=== PATIENT | female | born 2000 | race Two or more races ===

== ENCOUNTER 2023-07-20 12:26 | Inpatient (IN) ==
--- NOTE | 2023-07-20 14:43 | Emergency Department Note ---
Impression & Plan Multifocal pneumonia, CAP (community acquired pneumonia) ED Provider Note NAME: DAMASO EPPERSON AGE: 22 SEX: F : 2000 ARRIVES VIA: Walk-In INFORMANT: Patient, ED PROVIDER(S): Leo Hayward DO CHIEF COMPLAINT: Pneumonia HPI: Patient is a 20-year-old female with no significant past medical history that presents the ER for cough which has been present for close to 1 week. She admits to feeling hot and cold but no recorded fevers. Shots are up-to-date. She has shortness of breath which has been getting worse since yesterday as well as pain with coughing. Denies any belly pain, nausea, vomiting, or diarrhea. No dysuria, urgency, or frequency. No other exacerbating or remitting factors. ADDITIONAL HISTORY OBTAINED: Per HPI Chronic Medical/Social Conditions Affecting Care: Per HPI PAST MEDICAL HISTORY:See Below PAST SURGICAL HISTORY:See Below FAMILY HISTORY:See Below SOCIAL HISTORY:See Below HOME MEDICATIONS:See Below ALLERGIES:See Below VITALS:See Below PHYSICAL EXAMINATION: GENERAL: Sitting up in bed, alert, well appearing, well nourished, no distress, non-toxic, intermittent cough EYE EXAM: normal conjunctiva. PERRL and EOM's grossly intact. OROPHARYNX:mucous membranes are moist NECK: supple, no nuchal rigidity, no adenopathy, non-tender LUNGS: Clear to auscultation. Normal chest wall mechanics HEART: tachycardic, S1 normal and S2 normal ABDOMEN: abdomen soft, non-tender, normo-active bowel sounds, no masses, no rebound or guarding. BACK: Back is symmetrical on inspection and there is no deformity, no midline tenderness, no CVA tenderness. SKIN: no rashes and no bruising UPPER EXTREMITIES: upper extremities are grossly normal. LOWER EXTREMITIES: No pitting edema. NEURO EXAM: Normal sensorium, cranial nerves II-XII grossly intact, normal speech, no gross weakness of arms, no gross weakness of legs. MEDICAL DECISION MAKING: Patient is a 20-year-old female who presents ER for worsening shortness of breath and chest pain. IV was established blood work was obtained. She was significantly tachycardic in the 130s to 140s upon arrival. Labs show no significant leukocytosis or anemia. BMP along LFTs bilirubin was unremarkable. Troponin was negative. CT of the chest was performed and showed bilateral pneumonia/multifocal pneumonia. Patient was given IV fluids and IV Rocephin. She already took her oral azithromycin this morning. She was given 2 L of fluids and her heart rate trended down to 110. She still remained fairly persistently tachycardic. With her multifocal pneumonia I did discuss case with the hospitalist for further evaluation management treatment. Consults/Care Managements Discussions: Per [facility] Triage Nursing notes reviewed. Limited review of prior medical records performed Vital Signs: reviewed and remarkable for tachycardic Differential diagnosis: Differential diagnosis: Etiologies such as viral syndrome, otitis, pharyngitis, pneumonia, influenza, meningitis, urinary tract infection, sepsis, bacteremia, as well as others were entertained. ER treatment provided: See below Diagnostics interpreted by me include EKG and cardiac monitoring as listed below: -Cardiac Monitoring: An order was placed for continuous cardiac monitoring. The monitor shows a rate of 120 with sinus rhythm. -ECG: Sinus tachycardia rate of 121 Normal axis No PVCs QTc 420 -Laboratory studies:Interpreted by me as stated above in MDM and shown below. Imaging studies: Xrays: As interpreted by me:none CTs show: CT angio of the chest per my preliminary interpretation showed infiltrates bilaterally CT angio chest per radiology showed multifocal infiltrate Procedures:none Critical Care: None Past Med/Surg History Medical History No pertinent past medical history Surgical History H/O wisdom tooth extraction History of rhinoplasty Family History Grandmother (Maternal) Cancer Breast cancer Diabetes Aunt Breast cancer Cancer Grandfather (Paternal) Prostate cancer Father Myocardial infarction Hypertension Denies family history of Ovarian cancer Lung cancer Colorectal cancer Social History Smoking Status: Never smoker Second Hand Exposure: No; Do You Dip or Chew Tobacco: No; Hx Alcohol Use: No Hx Substance Use: No Preferred Language: Spanish Communication Ability: Effective Communication Ability Comment: also speaks Bengali Visual Impairment: No Limitations Hearing Ability: Normal marital status: Single Current Living Situation: Alone current occupational status: student How many Children do You have: 0 Feels Safe at Home: Yes Childhood Exposure to Second-Hand Smoke: No caffeine: Yes (once or twice a week) Dental Care, Regularly: No Physical Activity Frequency: Does not Exercise Seatbelt Use: always Sunscreen Use: No Allergies Allergies Allergy/AdvReac Type Severity Reaction Status Date / Time No Known Allergies Allergy Verified 07/20/23 15:55 Home Meds Home Medications Medication Instructions Recorded Confirmed acetaminophen 500 mg tablet 1,000 mg PO DIRECTED PRN 07/20/23 07/20/23 FEVER/PAIN albuterol sulfate 90 mcg/actuation 1 puff inhalation QID 07/20/23 07/20/23 aerosol inhaler Previous Rx's Medication Instructions Recorded amoxicillin 875 mg-potassium 1 tab PO BID 7 days #14 tabs 07/19/23 clavulanate 125 mg tablet azithromycin 250 mg tablet 250 mg PO DAILY 4 days #4 tabs 07/19/23 (Zithromax) Results & Data (ED) Vital Signs Vital Signs - 24 hr 07/20/23 12:41 07/20/23 15:13 07/20/23 15:15 Temperature 36.5 C Temperature Source Temporal Artery Scan Pulse Rate 130 H 113 H Pulse Rate [Apical] 109 H Respiratory Rate 18 24 Respiratory Effort / Characteristics Non-Labored Respiratory Depth Normal Normal Respiratory Pattern Regular Blood Pressure 125/81 Blood Pressure [Right Arm] 131/83 Blood Pressure Mean 95 Blood Pressure Mean [Right Arm] 99 Pulse Oximetry 94 99 Oxygen Delivery Method Room Air Room Air Sepsis Recent Fever Within 48 Hours No Sepsis New/Unexplained Change in Mental Status N/A Sepsis Action Taken by Nursing No Action Required 07/20/23 15:15 07/20/23 16:38 Temperature Temperature Source Pulse Rate Pulse Rate [Apical] 111 H Respiratory Rate 22 Respiratory Effort / Characteristics Respiratory Depth Normal Respiratory Pattern Blood Pressure Blood Pressure [Right Arm] 121/73 Blood Pressure Mean Blood Pressure Mean [Right Arm] 89 Pulse Oximetry 96 98 Oxygen Delivery Method Room Air Room Air Sepsis Recent Fever Within 48 Hours Sepsis New/Unexplained Change in Mental Status Sepsis Action Taken by Nursing Laboratory Data 07/20/23 14:40 07/20/23 14:40 Lab Results 07/20/23 Range/Units 14:40 WBC 10.77 (4.8-10.8) K/ul RBC 4.52 (4.20-5.40) M/uL Hgb 13.1 (12.0-16.0) g/dl Hct 39.2 (37.0-47.0) % MCV 86.7 (80.0-100.0) fL MCH 29.0 (25.0-34.0) pg MCHC 33.4 (32.0-36.0) g/dL RDW Std Deviation 42.8 (36.4-46.3) fL RDW Coeff of Shankar 13.5 (11.5-14.5) % Plt Count 287 (130-400) K/uL MPV 10.4 (9.4-12.4) fL Immature Gran % (Auto) 0.8 % Neut % (Auto) 79.9 % Lymph % (Auto) 9.7 % [place]air % (Auto) 8.4 % Eos % (Auto) 0.6 % Baso % (Auto) 0.6 % Neut # (Auto) 8.62 H (1.40-6.50) K/uL Lymph # (Auto) 1.04 L (1.20-3.40) K/uL [place] # (Auto) 0.90 H (0.11-0.59) K/uL Eos # (Auto) 0.06 (0.00-0.50) K/uL Baso # (Auto) 0.06 (0.00-0.20) K/uL Immature Gran # (Auto) 0.09 (0.01-0.20) K/uL Sodium 135 L (136-145) mmol/L Potassium 3.8 (3.5-5.1) mmol/L Chloride 101 (98-107) mmol/L Carbon Dioxide 26 (21-32) mmol/L Anion Gap 8 (3-11) BUN 4 L (6-23) mg/dl Creatinine 0.68 (0.6-1.2) mg/dl Est Cr Clr Drug Dosing 114.7 ml/min Est GFR ( Amer) 143.9 ml/min Est GFR (Non-Af Amer) 124.2 ml/min BUN/Creatinine Ratio 5.9 L (10-20) Glucose 93 (70-99(Fasting)) mg/dl Calcium 9.5 (8.6-10.3) mg/dl Total Bilirubin 0.3 (0.2-1.0) mg/dl AST 11 L (13-39) U/L ALT 9 (7-52) U/L Alkaline Phosphatase 46 (34-104) U/L Troponin I High Sens 2.5 (0-14) pg/ml Total Protein 7.9 (6.0-8.3) gm/dl Albumin 4.2 (3.4-5.0) gm/dl Globulin 3.7 (2.5-4.0) gm/dl Albumin/Globulin Ratio 1.1 (0.9-2) HCG, Qual Negative (Negative) Administered Medications Guaifenesin (Guaifenesin 600 Mg Tabcr) 1,200 mg PO Q12 DEDRICK Stop: 08/19/23 20:59 Last Admin: 07/20/23 20:13 Dose: 1,200 mg Documented By: GERONIMO Discontinued Medications Acetaminophen (Acetaminophen 500 Mg Tab) 1,000 mg PO NOW STA Stop: 07/20/23 16:53 Last Admin: 07/20/23 17:35 Dose: 1,000 mg Documented By: JEANNINE Sodium Chloride (Nss) 1,000 mls @ 999 mls/hr IV .Q1H1M ONE Stop: 07/20/23 15:40 Last Infusion: 07/20/23 16:33 Dose: Infused Documented By: Admin: 07/20/23 15:38 Dose: 999 mls/hr Documented By: JEANNINE Sodium Chloride (Nss) 1,000 mls @ 999 mls/hr IV .Q1H1M ONE Stop: 07/20/23 15:43 Last Infusion: 07/20/23 16:33 Dose: Infused Documented By: Admin: 07/20/23 15:38 Dose: 999 mls/hr Documented By: JEANNINE Ceftriaxone Sodium (Rocephin) 2,000 mg in 50 mls @ 100 mls/hr IV NOW STA Stop: 07/20/23 16:06 Last Infusion: 07/20/23 17:10 Dose: Infused Documented By: Admin: 07/20/23 16:38 Dose: 100 mls/hr Documented By: JEANNINE Parenteral Electrolytes (Plasma-Lyte A Ph 7.4) 1,000 mls @ 999 mls/hr IV .Q1H1M ONE Stop: 07/20/23 17:24 Last Infusion: 07/20/23 17:53 Dose: Infused Documented By: Admin: 07/20/23 16:37 Dose: 999 mls/hr Documented By: JEANNINE Ioversol (Optiray 320 125ml) 117 ml IV ONCE ONE Stop: 07/20/23 14:56 Last Admin: 07/20/23 14:55 Dose: 117 ml Documented By: JUNG Ketorolac Tromethamine (Ketorolac Tromethamine 15 Mg/Ml Vial) 15 mg IV NOW ONE Stop: 07/20/23 14:41 Last Admin: 07/20/23 15:38 Dose: 15 mg Documented By: JEANNINE Imaging Data Radiologist's Impression: Chest CTA 07/20/23 13:38 CT angio chest PE protocol CLINICAL HISTORY: Dyspnea TECHNIQUE: Multidetector row helical CT of the chest was performed with angiographic protocol. Coronal and sagittal reformations were obtained. Coronal and sagittal MIPS were obtained from the axial data set and were submitted for review. Automated dose lowering techniques and/or adjustment according to patient size were utilized for this exam. CT DOSE: 286.01 mGy.cm Comparison: Comparison is made to chest radiograph 07/19/2023 FINDINGS: Lungs and pleura: Multifocal airspace opacities are seen in the bilateral lower lobes. Heart and pericardium: Heart size is normal. No pericardial effusion. Vessels: No evidence of pulmonary embolism. Mediastinum and olya: Unremarkable. Chest wall and lower neck: Unremarkable. Abdomen: Unremarkable. Bones: Unremarkable. IMPRESSION: No pulmonary embolus. Airspace opacities are seen compatible with pneumonia. ACT 112: Negative or not required by law. Electronically signed by: Vitaliy Lei M.D. 07/20/2023 3:33 PM Discharge Plan Visit Data Chief Complaint: Respiratory Problems Stated Complaint: DXD PNEUMONIA 07/19/23 SYMPTOMS WORSENING ED Provider: Leo Hayward Discharge Problem: Multifocal pneumonia, CAP (community acquired pneumonia) Patient Disposition: Admitted As Inpatient Discharge Instructions Interventions: ED Discharge Assessment Last Done: 07/20/23 19:20 Discharge Problem: CAP (community acquired pneumonia) Qualifiers: Laterality: unspecified laterality Qualified Code(s): J18.9 - Pneumonia, unspecified organism
[2023-07-20] MEDS: OPTIRAY 320 125ml IV ONE (14:55)
[2023-07-20 14:58] LABS: Basophils # (auto) 0.06 K/uL (0.00-0.20); Basophils % (auto) 0.6 %; Eosinophils # (auto) 0.06 K/uL (0.00-0.50); Eosinophils % (auto) 0.6 %; Hematocrit (blood only) 39.2 % (37.0-47.0); Hemoglobin 13.1 g/dl (12.0-16.0); Immature Granulocytes # (auto) 0.09 K/uL (0.01-0.20); Immature Granulocytes % (auto) 0.8 %; Lymphocytes # (auto) 1.04 K/uL (1.20-3.40); Lymphocytes % (auto) 9.7 %; Mean Corpuscular Hgb Conc 33.4 g/dL (32.0-36.0); Mean Corpuscular Volume 86.7 fL (80.0-100.0); Mean Platelet Volume 10.4 fL (9.4-12.4); Monocytes % (auto) 8.4 %; Neutrophils # (auto) 8.62 K/uL (1.40-6.50); Neutrophils % (auto) 79.9 %; Platelet Count 287 K/uL (130-400); RDW Coefficient of Variation 13.5 % (11.5-14.5); RDW Standard Deviation 42.8 fL (36.4-46.3); Red Blood Count 4.52 M/uL (4.20-5.40); White Blood Count 10.77 K/ul (4.8-10.8)
[2023-07-20 15:13] LABS: Pregnancy Test, Serum Negative (Negative)
[2023-07-20 15:15] LABS: Albumin Globulin Ratio 1.1 (0.9-2); Albumin Level 4.2 gm/dl (3.4-5.0); BUN Creatinine Ratio 5.9 (10-20); Bilirubin,Total 0.3 mg/dl (0.2-1.0); Calcium 9.5 mg/dl (8.6-10.3); Creatinine Clr Calc Pharmacy 114.7 ml/min; Est GFR (African American) 143.9 ml/min; Est GFR (Non-African American) 124.2 ml/min; Globulin 3.7 gm/dl (2.5-4.0); Potassium 3.8 mmol/L (3.5-5.1); Total Protein 7.9 gm/dl (6.0-8.3)
[2023-07-20 15:22] LABS: Troponin I High Sensitivity 2.5 pg/ml (0-14)
--- NOTE | 2023-07-20 15:34 | CT Scan Report ---
CT angio chest PE protocol CLINICAL HISTORY: Dyspnea TECHNIQUE: Multidetector row helical CT of the chest was performed with angiographic protocol. Sigala l and sagittal reformations were obtained. Coronal and sagittal MIPS were obtained from the axial nita a set and were submitted for review. Automated dose lowering techniques and/or adjustment according to patient size were utilized for this exam. CT DOSE: 286.01 mGy.cm Comparison: Comparison is made to chest radiograph 07/19/2023 FINDINGS: Lungs and pleura: Multifocal airspace opacities are seen in the bilateral lower lobes. Heart and pericardium: Heart size is normal. No pericardial effusion. Vessels: No evidence of pulmonary embolism. Mediastinum and olya: Unremarkable. Chest wall and lower neck: Unremarkable. Abdomen: Unremarkable. Bones: Unremarkable. IMPRESSION: No pulmonary embolus. Airspace opacities are seen compatible with pneumonia. ACT 112: Negative or not required by law. Electronically signed by: Vitaliy Lei M.D. 07/20/2023 3:33 PM
[2023-07-20] MEDS: SODIUM CHLORIDE 0.9% 1,000 ML IV ONE ×2 (15:38)
[2023-07-20] MEDS: KETOROLAC TROMETHAMINE 15 MG/ML VIAL IV ONE (15:38)
[2023-07-20] MEDS: PLASMA-LYTE A 1,000 ML IV ONE (16:37)
[2023-07-20] MEDS: cefTRIAXone SODIUM 2,000 MG/50 ML BAG IV STA (16:38)
--- NOTE | 2023-07-20 16:45 | History & Physical Report ---
Date of Service July 20, 2023 Assessment & Plan (1) CAP (community acquired pneumonia): Plan: Ceftriaxone + azithromycin - doubtful failed Augmentin therefore can switch back to this as an outpatient, just likely did not have time to work. Incentive spirometer, flutter valve, guaifenesin, dextromethorphan as needed Plan VTE Prophylaxis - low risk Diet - Diet, no pork Disposition - admit to med/surg History of Present Illness Chief Complaint: Shortness of breath, chest pain Primary Care Provider: DO Laci Rubin Sade is a 22 year old female who presents to the ER with shortness of breath and chest pain. She was diagnosed yesterday with community-acquired pneumonia and given Augmentin and azithromycin in the emergency room. Cepheid PCR test was negative for COVID, flu and RSV. Despite this she reports worsening shortness of breath especially overnight with chest pain on coughing up thick sputum. Ongoing chills. Due to significant tachycardia with worsening symptoms despite oral antibiotics starting yesterday morning she was referred to medicine for admission and ongoing management. She currently denies any chest pain. She is otherwise healthy with no immunosuppressant medications or prior significant medical diagnoses. She thinks she may have had pneumonia once as a child but nothing recurrent. No travel outside the country in the last 6 months. No pets. She is a [employer] student. On review of systems she reports 1 episode of diarrhea yesterday. She vomited once after coughing before coming to the emergency room yesterday but no nausea or vomiting since. No abdominal pain, dysphagia or odynophagia. She notes reduced appetite with this illness. Allergies Allergy/AdvReac Type Severity Reaction Status Date / Time No Known Allergies Allergy Verified 07/20/23 15:55 Home Medications Medication Instructions Recorded Confirmed Type amoxicillin 875 mg-potassium 1 tab PO BID 7 days #14 tabs 07/19/23 07/20/23 Rx clavulanate 125 mg tablet azithromycin 250 mg tablet 250 mg PO DAILY 4 days #4 tabs 07/19/23 07/20/23 Rx (Zithromax) acetaminophen 500 mg tablet 1,000 mg PO DIRECTED PRN 07/20/23 07/20/23 History FEVER/PAIN albuterol sulfate 90 mcg/actuation 1 puff inhalation QID 07/20/23 07/20/23 History aerosol inhaler Past Med/Surg History Medical History No pertinent past medical history Surgical History H/O wisdom tooth extraction History of rhinoplasty Family History Grandmother (Maternal) Cancer Breast cancer Diabetes Aunt Breast cancer Cancer Grandfather (Paternal) Prostate cancer Father Myocardial infarction Hypertension Denies family history of Ovarian cancer Lung cancer Colorectal cancer Social History Smoking Status: Never smoker Second Hand Exposure: No; Do You Dip or Chew Tobacco: No; Hx Alcohol Use: No Hx Substance Use: No Preferred Language: Tamazight Communication Ability: Effective Communication Ability Comment: also speaks Uzbek Visual Impairment: No Limitations Hearing Ability: Normal marital status: Single Current Living Situation: Alone current occupational status: student How many Children do You have: 0 Feels Safe at Home: Yes Childhood Exposure to Second-Hand Smoke: No caffeine: Yes (once or twice a week) Dental Care, Regularly: No Physical Activity Frequency: Does not Exercise Seatbelt Use: always Sunscreen Use: No Review of Systems Review of Systems: All systems reviewed & are unremarkable except as noted in HPI & below Physical Exam Constitutional: WD/WN, vitals as above Eyes: PERRL, conjunctivae normal, anicteric sclerae ENMT: external ear and nose normal, oropharynx normal Neck: trachea midline, no thyromegaly Respiratory: normal respiratory effort; no respiratory distress Auscultation: + crackles (Right base); breath sounds present, no diminished lung sounds and no wheezes Cardiovascular: Rate/Rhythm: regular rhythm and + tachycardic Heart Sounds: no murmur Extremities: no pedal edema Gastrointestinal (Abdomen): normal bowel sounds, soft, nontender, no hepatosplenomegaly Skin: no rashes, warm and dry Neurologic: moves all extremities and awake; not confused Psychiatric: A+Ox3, euthymic affect Results & Data Results & Data Vital Signs (Past 12 Hours) Vital Signs Temp Pulse Pulse Resp BP BP Pulse Ox 07/20/23 16:38 111 H 22 121/73 98 07/20/23 15:15 96 07/20/23 15:15 109 H 24 131/83 99 07/20/23 15:13 113 H 07/20/23 12:41 36.5 C 130 H 18 125/81 94 O2 Del Method 07/20/23 16:38 Room Air 07/20/23 15:15 Room Air 07/20/23 15:15 Room Air 07/20/23 15:13 07/20/23 12:41 Room Air Laboratory Results Abnormal lab results 07/20/23 Range/Units 14:40 Neut # (Auto) 8.62 H (1.40-6.50) K/uL Lymph # (Auto) 1.04 L (1.20-3.40) K/uL Door # (Auto) 0.90 H (0.11-0.59) K/uL Sodium 135 L (136-145) mmol/L BUN 4 L (6-23) mg/dl BUN/Creatinine Ratio 5.9 L (10-20) AST 11 L (13-39) U/L Diagnostic Findings CT angio chest PE protocol CLINICAL HISTORY: Dyspnea TECHNIQUE: Multidetector row helical CT of the chest was performed with angiogra [facility] protocol. Coronal and sagittal reformations were obtained. Coronal and sagittal MIPS were obtained from the axial data set and were submitted for review. Automated dose lowering techniques and/or adjustment according to patient size were utilized for this exam. CT DOSE: 286.01 mGy.cm Comparison: Comparison is made to chest radiograph 07/19/2023 FINDINGS: Lungs and pleura: Multifocal airspace opacities are seen in the bilateral lower lobes. Heart and pericardium: Heart size is normal. No pericardial effusion. Vessels: No evidence of pulmonary embolism. Mediastinum and olya: Unremarkable. Chest wall and lower neck: Unremarkable. Abdomen: Unremarkable. Bones: Unremarkable. IMPRESSION: No pulmonary embolus. Airspace opacities are seen compatible with pneumonia. Medications Administered ER medications given: Normal saline 1 L bolus Toradol 15 mg IV Normal saline 1 L bolus Ceftriaxone 2 g IV Plasma-Lyte 1 L bolus ECG Rate (beats per minute): 121 Rhythm: sinus tachycardia Findings: + nonspecific-ST abn Comparison ECG Date: no prior available Code Status & VTE Plan Code Status Full VTE Prophylaxis Plan VTE Prophylaxis will be ordered: No PG Care Time/CCT Total # of Minutes Spent Total Time Spent with Patient: Total time spent is greater than 50% in coordination of care (as documented) at patient's floor/unit and/or counseling patient: Coding Level of Care Code 84366 INT INP/OBS CARE 2MIN Diagnoses CAP (community acquired pneumonia) J18.9 Laterality: right Lung location: middle lobe of lung (1) CAP (community acquired pneumonia) Laterality: right Lung location: middle lobe of lung Qualified Code(s): J18.9 - Pneumonia, unspecified organism
--- NOTE | 2023-07-20 17:01 | Electrocardiogram Report ---
Test Reason : Blood Pressure : / mmHG Vent. Rate : 121 BPM Atrial Rate : 121 BPM P-R Int : 118 ms QRS Dur : 080 ms QT Int : 296 ms P-R-T Axes : 070 087 032 degrees QTc Int : 420 ms Sinus tachycardia Nonspecific ST abnormality Otherwise normal ECG No previous ECGs available Confirmed by Chaim Guerra ([id number]) on 07/20/2023 5:00:54 PM Referred By: Confirmed By:Capo Guerra
[2023-07-20] MEDS: ACETAMINOPHEN 500 MG TAB PO STA (17:35)
[2023-07-20] MEDS ORDERED: DEXTROMETHORPHAN POLYMR COMPLX 30 MG/5 ML UDP PO PRN (19:44)
[2023-07-20] MEDS ORDERED: MELATONIN 3 MG TAB PO PRN (19:44)
[2023-07-20] MEDS ORDERED: ONDANSETRON INJ 2 MG/ML 2 ML VIAL IV PRN (19:44)
[2023-07-20] MEDS ORDERED: ALBUTEROL HFA 8 GM INHALER INH PRN (19:44)
[2023-07-20] MEDS: guaiFENesin 600 MG TABCR PO SCH (20:13)
[2023-07-21] MEDS: ACETAMINOPHEN 325 MG TAB PO PRN (00:31)
[2023-07-21] MEDS: AZITHROMYCIN 250 MG TAB PO SCH (08:42)
[2023-07-21] MEDS: cefTRIAXone SODIUM 2,000 MG in DEXTROSE 5 % MINI-B 50 ML IV SCH (13:50)
[2023-07-21] MEDS: SODIUM CHLORIDE 0.65% NA SOLN 45 ML (OCEAN) SCH (15:44)
--- NOTE | 2023-07-21 18:29 | Discharge Summary ---
Date of Service July 21, 2023 Admission HPI Per Admitting Provider Laci Stuart is a 22 year old female who presents to the ER with shortness of breath and chest pain. She was diagnosed yesterday with community-acquired pneumonia and given Augmentin and azithromycin in the emergency room. Cepheid PCR test was negative for COVID, flu and RSV. Despite this she reports worsening shortness of breath especially overnight with chest pain on coughing up thick sputum. Ongoing chills. Due to significant tachycardia with worsening symptoms despite oral antibiotics starting yesterday morning she was referred to medicine for admission and ongoing management. She currently denies any chest pain. She is otherwise healthy with no immunosuppressant medications or prior significant medical diagnoses. She thinks she may have had pneumonia once as a child but nothing recurrent. No travel outside the country in the last 6 months. No pets. She is a [employer] student. On review of systems she reports 1 episode of diarrhea yesterday. She vomited once after coughing before coming to the emergency room yesterday but no nausea or vomiting since. No abdominal pain, dysphagia or odynophagia. She notes reduced appetite with this illness. Principal Diagnosis Community acquired pneumonia Discharge Exam Constitutional WD/WN, vitals as above Eyes PERRL, conjunctivae normal, anicteric sclerae ENMT external ear and nose normal, oropharynx normal Neck trachea midline, no thyromegaly Respiratory normal respiratory effort, lungs clear to auscultation normal respiratory effort; no respiratory distress Auscultation: + crackles (Right base); breath sounds present, no diminished lung sounds and no wheezes Cardiovascular Rate/Rhythm: regular rhythm and + tachycardic Heart Sounds: no murmur Extremities: no pedal edema Gastrointestinal (Abdomen) normal bowel sounds, soft, nontender, no hepatosplenomegaly Skin no rashes, warm and dry Neurologic moves all extremities and awake; not confused Psychiatric A+Ox3, euthymic affect Discharge Data Allergies Allergy/AdvReac Type Severity Reaction Status Date / Time No Known Allergies Allergy Verified 08/02/23 15:07 Consultations 07/20/23 16:43 ED Decision to Admit Stat Ordered Studies 07/20/23 13:38 CT angio chest PE protocol Stat IMPRESSION: No pulmonary embolus. Airspace opacities are seen compatible with pneumonia. Hospital Course (1) CAP (community acquired pneumonia): Laci Stuart is a 22 year old female admitted to [facility] from July 20 to 2023 due to shortness of breath. She was diagnosed with community-acquired pneumonia. This was treated with intravenous ceftriaxone and oral azithromycin. She should continue on her previously prescribed Augmentin to finish the prior prescription starting tomorrow morning and azithromycin 250mg daily for the next 3 days. She should follow-up with her primary care physician in approximately 1 week. Total Time Total Time Spent Total Time Spent (In Minutes): 25 Discharge Plan Discharge Items Patient Disposition: Home - Self-Care Reason For Visit: COMMUNITY ACQUIRED PNEUMONIA Discharge Diagnosis: Community acquired pneumonia Activity: Resume your previous activity Non-emergency contact: Primary Care Provider Call non-emergency contact if: you have any medication questions, your symptoms worsen and your temperature is above 101 Follow-up/Referrals: Perfecto Martinez DO [Primary Care Provider] - (1 week pneumonia follow up) Diet: Regular Addtl Attending Provider Instructions: You were admitted to [facility] from July 20 to 2023 due to shortness of breath. You were diagnosed with community-acquired pneumonia. This was treated with intravenous ceftriaxone and oral azithromycin. Please continue on your previously prescribed Augmentin finish the prior prescription starting tomorrow morning and azithromycin 250mg daily for the next 3 days. Please follow-up with your primary care physician in approximately 1 week. Pending Studies at Discharge: No Stand-Alone Forms: My [facility], Work/School Release, Smoking Cessation Medications and DC Order Prescriptions: No Action No Known Home Medications Discharge Orders: Discharge Order (Routine); Ordered 07/21/23 Ordered By: Larry Rebollar Admission Data Admit Date/Time: 07/20/23 17:07 Attending Provider: Larry Rebollar Admit Provider: Larry Rebollar Primary Care Provider: Perfecto Martinez Other Interventions: Discharge Summary Assessment (RN) Last Done: 07/21/23 18:43 Coding Level of Care Code 43232 IN/OBS DISCH 30 MIN/LESS Diagnoses CAP (community acquired pneumonia) J18.9 Laterality: unspecified laterality
== END 2023-07-21 18:55 | disposition home or self-care (01) | DRG 195 ==
LOC: ED 12:26 → 3W 17:07
DX: J18.9 Pneumonia, unspecified organism